=== PATIENT | male | born 1985 | race Caucasian/White ===

== ENCOUNTER → 2021-01-19 13:45 | Outpatient (BNVA) | payer OTHER, SELFPAY | PROVIDERS: Visit Provider Internal Medicine | DX: T49.0X5A Adverse effect of local antifungal, anti-infective and anti-inflammatory drugs, initial encounter (principal) | CPT/HCPCS: 99202 ==

== ENCOUNTER 2022-04-19 17:02 | Outpatient (REF) | payer OTHER, SELFPAY ==
[2022-04-20 09:33] LABS: Campylobacter Not Detected (Not Detect.); E. coli EAEC Not Detected (Not Detect.); E. coli EPEC Not Detected (Not Detect.); E. coli ETEC Not Detected (Not Detect.); E. coli STEC Not Detected (Not Detect.); Plesiomonas shigelloides Not Detected (Not Detect.); Salmonella Not Detected (Not Detect.); Shigella sp./EIEC Not Detected (Not Detect.); Vibrio Not Detected (Not Detect.); Vibrio Cholerae Not Detected (Not Detect.); Yersinia enterocolitica Not Detected (Not Detect.)
[2022-04-20 09:34] LABS: Adenovirus F 40/41 Not Detected (Not Detect.); Astrovirus Not Detected (Not Detect.); Cryptosporidium Not Detected (Not Detect.); Cyclospora cayetanensis Not Detected (Not Detect.); Entamoeba histolytica Not Detected (Not Detect.); Giardia lamblia Not Detected (Not Detect.); Norovirus GI/GII Not Detected (Not Detect.); Rotavirus A Not Detected (Not Detect.); Sapovirus Not Detected (Not Detect.)
== END 2022-04-19 17:03 | disposition home or self-care (01) ==
LOC: HO.LNP 17:02
PROVIDERS: Visit Provider Internal Medicine Gastroenterology
DX: R19.8 Other specified symptoms and signs involving the digestive system and abdomen (principal)
CPT/HCPCS: 87177; 87209; 87507

== ENCOUNTER 2022-04-30 06:19 | Day surgery (SDC) | payer OTHER, SELFPAY ==
--- NOTE | 2022-04-29 12:01 | P.CONAN_ITS ---
Documented by User: Elisabeth Macias NP 04/29/22 12:03 HPI - Anesthesia Eval Consult details Narrative: 37yo M for Colonoscopy [facility] Past Medical History Medical History Elevated cholesterol Headache Low back pain Muscle spasm Surgical History Surgical History Hx of hand surgery Social History Social History Patient Tobacco Use Status: Never used Tobacco Use of substances other than those prescribed or required for medical reasons: No Are you DNR?: No Advance Directives: No Advance Directives Information Provided: Yes Meds Allergies Allergy/AdvReac Type Severity Reaction Status Date / Time No Known Allergies Allergy Verified 04/29/22 10:14 Home Medications Medication Instructions Recorded Confirmed Last Taken Type baclofen 10 mg tablet 10 mg PO BID PRN Back Pain 04/29/22 04/29/22 Unknown History docusate sodium 50 mg tablet 50 mg PO DAILY PRN Constipation 04/29/22 04/29/22 Unknown History gabapentin 300 mg tablet 300 mg PO DAILY 04/29/22 04/29/22 Unknown History naproxen 250 mg tablet 250 mg PO BID 04/29/22 04/29/22 04/23/22 History rosuvastatin 10 mg tablet 10 mg PO DAILY 04/29/22 04/29/22 Unknown History Exam Exam Date and Time: April 29, 2022 1201 Assessment and Plan Assessment Anesthesia Assessment: Chart Reviewed Documented by User: Rylan Venegas MD 04/30/22 10:52 [facility] Past Medical History Medical History Elevated cholesterol Headache Low back pain Muscle spasm Functional capacity: independent ambulation Family History Family history of problems with anesthesia: No Surgical History Surgical History Hx of hand surgery History of Problems with Anesthesia: No Social History Social History Patient Tobacco Use Status: Never used Tobacco Use of substances other than those prescribed or required for medical reasons: No Are you DNR?: No Advance Directives: No Advance Directives Information Provided: Yes Meds Allergies Allergy/AdvReac Type Severity Reaction Status Date / Time No Known Allergies Allergy Verified 04/29/22 10:14 Home Medications Medication Instructions Recorded Confirmed Last Taken Type baclofen 10 mg tablet 10 mg PO BID PRN Back Pain 04/29/22 04/29/22 Unknown H istory docusate sodium 50 mg tablet 50 mg PO DAILY PRN Constipation 04/29/22 04/29/22 Unknown History gabapentin 300 mg tablet 300 mg PO DAILY 04/29/22 04/29/22 Unknown History naproxen 250 mg tablet 250 mg PO BID 04/29/22 04/29/22 04/23/22 History rosuvastatin 10 mg tablet 10 mg PO DAILY 04/29/22 04/29/22 Unknown History Exam Airway Mallampati Class: IV TM Dist: >3cm Neck ROM: Full Loose/Missing/Broken Teeth: Yes Heart: S1,S2 Lungs: b/l breath sounds Assessment and Plan Assessment Anesthesia Assessment: Anesthesia Plan Discussed Final Anesthetic Review Family History of Problems with Anesthesia: No History of Problems with Anesthesia: No NPO: Yes ASA Class: II Final Preanesthetic Review: Meds/Allgs Chart Reviewed, Consent Obtained/Reviewed and Anes Risks/Benef Reviewed Patient Risk: Intermediate Procedure Risk: Intermediate Anesthetic Plan Anesthetic Plan: MAC: Disposition: Standard PACU
[2022-04-30 06:29] VITALS: BMI 30.2
[2022-04-30 06:33] VITALS: BP 115/68; PULSE 75; RESP 15; TEMP 36.1; O2SAT 99
[2022-04-30] MEDS: Lactated Ringers 1,000 ML 100 ML IVCONT (06:51)
--- NOTE | 2022-04-30 07:27 | MHC.SHP ---
Pre-Procedural Eval Section A Date of Service: 04/30/22 The patient is an INPATIENT: No Changes since office visit: No Cold of Flu in the past 2 weeks, No New Medical Problems, No Changes in Medication and No Patient answered all questions The History & Physical has been completed within 30 days and I have reviewed it.: Yes Section B Chief Complaint: symptoms and signs involving the digestive Allergies: Allergies Allergy/AdvReac Type Severity Reaction Status Date / Time No Known Allergies Allergy Verified 04/29/22 10:14 Plan I have reviewed the history and physical and performed a pertinent physical examination on my patient. No changes have occurred unless specified.
[2022-04-30 08:07] VITALS: BP 94/52; PULSE 70; RESP 16; TEMP 36.8; O2SAT 100
--- NOTE | 2022-04-30 08:11 | P.BOP_ITS ---
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
[2022-04-30 08:22] VITALS: BP 91/55; PULSE 61; RESP 16; O2SAT 100
[2022-04-30 08:37] VITALS: BP 101/54; PULSE 77; RESP 16; TEMP 36.3; O2SAT 98
[2022-04-30 08:52] VITALS: BP 101/54; PULSE 66; RESP 16; TEMP 36.8; O2SAT 97
--- NOTE | 2022-04-30 09:39 | OP_ITS ---
SURGEON: Supa Sullivan MD INDICATIONS: Change in bowels. PREOPERATIVE DIAGNOSIS: POSTOPERATIVE DIAGNOSIS: PROCEDURE PERFORMED: Colonoscopy to the terminal ileum with biopsy. ESTIMATED BLOOD LOSS: COMPLICATIONS: ANESTHESIA: Monitored anesthesia care. ASSISTANTS: SPECIMENS: DESCRIPTION OF PROCEDURE: The procedure was performed on 04/30/2022. A history and physical performed. The risks and benefits of the procedure were explained to the patient. Informed consent was obtained. The patient was placed in the left lateral decubitus position. A digital rectal exam was performed and was found to be normal. The Olympus pediatric video colonoscope was introduced into the rectum and advanced to the cecum without difficulty. The cecum was identified by transillumination, palpation, and identification of the ileocecal valve examination was performed. The scope was removed. He tolerated the procedure well and was taken to recovery area in stable condition. FINDINGS: The terminal ileum was normal. The visualized colonic mucosa was normal. The quality of the prep was excellent. No polyps were identified. Random sigmoid biopsies were obtained to evaluate for microscopic colitis. Retroflexed examination showed small internal hemorrhoids. IMPRESSION: Normal colonoscopy. RECOMMENDATION: 1. Follow up as needed. 2. Repeat colonoscopy for screening purposes recommended in 10 years for average risk individuals. MD LITTLE Swanson/BRANDON / [id number]
== END 2022-04-30 09:23 | disposition home or self-care (01) ==
PROVIDERS: PCP Internal Medicine; Visit Provider Internal Medicine Gastroenterology
PROC: 0DJD8ZZ Inspection of Lower Intestinal Tract, Via Natural or Artificial Opening Endoscopic (ICD-10-PCS; CPT 45378; principal; 2022-04-30 07:30)
DX: R19.8 Other specified symptoms and signs involving the digestive system and abdomen (principal); K64.8 Other hemorrhoids; E78.00 Pure hypercholesterolemia, unspecified; Z79.899 Other long term (current) drug therapy
CPT/HCPCS: 45380; 88305